=== PATIENT | male | born 1940 | race Caucasian/White ===

== ENCOUNTER 2016-08-19 12:57 | Emergency (ER) | payer OTHER ==
[~2016-08-19] VITALS: Ht 167.6 cm; Wt 68.0 kg
[~2016-08-19 12:57] MED LIST: ADVAIR HFA115 MCG/21 INH; AMOXICILLIN 50500 M1 PO; ATORVASTATIN CA40 MG PO; CARDIZEM CD240 MG PO; COLACE100 MG PO; COUMADIN 5 MG TA5 M1 PO; COZAAR 50 MG TA50 M2 PO; COZAAR100 MG PO; LASIX 40 MG TAB40 M2 PO; NORVASC5 MG PO; PACERONE 200 M200 MG PO; PREDNISONE50 MG PO; PROVENTIL HFA6.7 G1 INH; SENNA PO; TOPROL XL50 MG PO; TYLENOL325 MG PO; VENTOLIN HFA 1818 GM INH; XARELTO15 MG PO
[2016-08-19] MEDS ORDERED: LOSARTAN POTAS100 MG PO (13:02)
[2016-08-19] MEDS ORDERED: METOPROLOL SUCC50 MG PO (13:02)
== END 2016-08-19 14:46 | disposition home or self-care (01) ==
LOC: ER 12:57
DX: S01.81XA Laceration without foreign body of other part of head, initial encounter (principal); I10 Essential (primary) hypertension; I48.91 Unspecified atrial fibrillation; J44.9 Chronic obstructive pulmonary disease, unspecified; F10.99 Alcohol use, unspecified with unspecified alcohol-induced disorder; Z90.49 Acquired absence of other specified parts of digestive tract; W18.09XA Striking against other object with subsequent fall, initial encounter; Y93.01 Activity, walking, marching and hiking; Y92.9 Unspecified place or not applicable; Y99.9 Unspecified external cause status

== ENCOUNTER 2017-04-21 14:25 | Inpatient (IN) | payer OTHER ==
[~2017-04-21] VITALS: Ht 167.6 cm; Wt 63.9 kg
--- NOTE | ~2017-04-21 | HC ---
[facility] [place] [address] CONSULTATION Name: HARIS EVANS Room #: 203-P [facility] IN .R.#: [id number] Admission: 04/21/17 Attend Phys: Edson Wallace Discharge: Date of : 40 Report #: [id number] THIS REPORT FOR: //name// CC: Devika Wallace DATE OF SERVICE: 04/27/2017 HISTORY OF PRESENT ILLNESS: This is a 76-year-old white male who was admitted with increased shortness of breath. He was noted to have acute respiratory failure, right lower lobe pneumonia. He has advanced pulmonary fibrosis. His course has been complicated by a metabolic encephalopathy, which appears to be superimposed upon a premorbid dementia. He has been confused with the need for wrist restrains. He has also been treated for paroxysmal atrial fibrillation and chronic kidney disease. We are seeing him in Rehabilitation Medicine consultation. 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 MEDICATIONS: Please see the full medication listing. HABITS: Current every day smoker, half pack per day for 50 years, history of some alcohol use as well. ALLERGIES: No known drug allergies. FAMILY HISTORY: Noncontributory. Medical records indicate family history of hypertension. SOCIAL HISTORY: Noted to be living with his , apartment. He used a cane or a walker. No steps. has noted he needed a wheelchair to get to the hospital room. She was able to drive short distances. REVIEW OF SYSTEMS: Unobtainable. PHYSICAL EXAMINATION: GENERAL: A 76-year-old white male who was very sleepy on examination. VITAL SIGNS: Temperature 97.8, pulse 58, respirations 13, blood pressure 164/89. Nasal prong O2 is in place, 2 liters. NEUROLOGIC: He would arouse, then go right back to sleep. Facies appeared symmetric. Bilateral wrists are restrained. Appears to have good strength of both upper extremities with normal appearing tone. Lower extremities, no focal calf swelling. Appeared to have good strength. Again, I was unable to manual test volitionally, but his tone appeared to be intact. No calf swelling. No distal lower extremity edema. Functionally, he has been min assist with sit to [facility] [address] [place] [address] CONSULTATION Name: HARIS EVANS Room #: 203-P [facility] IN M.R.#: [id number] Admission: 04/21/17 Attend Phys: Edson Wallace Discharge: Date of : 40 Report #: [id number] supine, max assist with sit to stand and was noted by therapy to be listing to the right with inability to ambulate secondary to decreased balance. ASSESSMENT: A 76-year-old white male with the following problem list: 1. Metabolic encephalopathy. Neurology is involved as well. 2. Respiratory failure. 3. Advanced pulmonary fibrosis. 4. Right lower lobe pneumonia. 5. Chronic obstructive pulmonary disease exacerbation. 6. Right heart failure with cor pulmonale. 7. History of atrial fibrillation. PLAN: He currently is quite sleepy and has bilateral wrist restrains in place. We will be glad to assist regarding rehab therapy options as he further medically stabilizes. Note that case management is involved. We will be glad to follow along with you. <ELECTRONICALLY SIGNED> By: Chris Espinosa MD 04/28/17 1006 1034 0129 Chris Espinosa MD /[facility]
--- NOTE | ~2017-04-21 | HC ---
[facility] [place] [address] CONSULTATION Name: HARIS EVANS Room #: 203-P ADM IN M.R.#: [id number] Admission: 04/21/17 Attend Phys: Edson Wallace Discharge: Date of : 40 Report #: [id number] THIS REPORT FOR: //name// CC: Devika Wallace DATE OF SERVICE: 04/22/2017 DATE OF SERVICE: 04/22/2017 REQUESTING PHYSICIAN: Dr. Edson Wallace. PRIMARY HOME RESTORATION SERVICE SUPERVISOR: Dr. David Stacy. PRIMARY CARE DOCTOR: Dr. Devika Brothers. CHIEF COMPLAINT: Shortness of breath. HISTORY OF PRESENT ILLNESS: The patient is a 76-year-old male with a history of COPD and atrial fibrillation, atrial arrhythmias, but no documented history of congestive heart failure, presents with increasing shortness of breath over the last several days. He denies orthopnea, PND. He denies cough, fevers, chills. He was given Lasix in the Emergency Room and his shortness of breath, which was predominantly with activity, has improved, but he still has an oxygen requirement of 2 liters nasal cannula. He ruled out for an acute myocardial infarction. His ECG demonstrates a sinus rhythm. He has a history of atrial fibrillation, anticoagulated with a novel agent and is on amiodarone. He denies palpitations or dizziness. He denies syncope or fall. He denies any abdominal pain, GI, bleeding on his current anticoagulation. He did have some lower extremity swelling. PAST SURGICAL HISTORY: Prior numerous back surgeries with placement of hardware, has prior hemicolectomy. FAMILY HISTORY: There is a history of hypertension. SOCIAL HISTORY: He has a half pack per day smoking history, he rarely drinks. PAST MEDICAL HISTORY: Includes atrial fibrillation, paroxysmal, ____ sinus [facility] [address] [place] [address] CONSULTATION Name: TEEJUDYHARIS Woodward Room #: 203-P [facility] IN [facility].#: [id number] Admission: 04/21/17 Attend Phys: Edson Wallace Discharge: Date of : 40 Report #: [id number] rhythm on amiodarone, chronic kidney disease, COPD, hypertension, hyperlipidemia, pneumonia, sepsis, tobacco abuse. ALLERGIES: He has no known drug allergies. HOME MEDICATIONS: Include losartan 100 mg daily, Toprol-XL 50 mg daily, amlodipine 5 mg daily, Xarelto 50 mg daily, Tylenol p.r.n. REVIEW OF SYSTEMS: GASTROINTESTINAL: No abdominal pain, nausea, vomiting. No hematemesis or melena. GENITOURINARY: No dysuria or hematuria. CARDIOVASCULAR: No chest pain. Positive dyspnea on exertion. Positive orthopnea, positive PND, positive edema. PULMONARY: Positive shortness of breath. Positive cough, no fevers or chills. NEUROLOGIC: Denies slurred speech, numbness or weakness. MUSCULOSKELETAL: Denies any recent fall. SKIN: Positive edema. No rashes: VITAL SIGNS: Blood pressure 123/65, pulse 52 in a sinus rhythm, sinus bradycardia, temperature is 36.1, respiratory rate 18, on 3 liters, his sats 92%. GENERAL: This is an elderly male who is alert, oriented, no apparent distress. NECK: Supple. No jugular venous distention. CARDIOVASCULAR: Regular, heart tones are distant, there is no rub or gallop. LUNGS: Diminished breath sounds, some coarseness and wheezing. ABDOMEN: Soft, nontender. EXTREMITIES: No peripheral edema. LABORATORY DATA: ECG demonstrates sinus bradycardia, normal ST segments. Hemoglobin is 12.5, white blood cell count 7.3. Sodium is 135, potassium 3.8, chloride is 97, CO2 is 37, BUN is 22, creatinine is 1.3. BNP is 1519, troponin I is 0.04. Chest x-ray today demonstrates aeration of the lung has improved with resolution of left lower lobe atelectasis and pneumonia. There is a questionable pneumonia in the right lower lung, spinal hardware is noted. IMPRESSION: 1. Acute respiratory insufficiency. I suspect this is a combination of possible pneumonia, bronchitis and possible mild congestive heart failure. He was given Lasix in the Emergency Department with overall net diuresis of over a liter with some improvement, but I would continue with aggressive pulmonary correlate and antibiotics as directed by pulmonary colleagues. 2. Paroxysmal atrial fibrillation, I would continue with his amiodarone, but if there is any concern that this is causing any permanent interstitial abnormality in his lungs then this can be discontinued. 3. On oral anticoagulation, adequate. At this point in time, he remains a high stroke risk. I would continue with anticoagulation. Although he has fallen in [address] [place] [address] CONSULTATION Name: TEEJUDYCrissyHARIS Ese Room #: 203-P [facility] IN ..#: [id number] Admission: 04/21/17 Attend Phys: Edson Wallace Discharge: Date of : 40 Report #: [id number] the past, he reports no recent episodes. 4. Hypertension. We will continue with his current medical therapy. 5. Congestive heart failure, acute diastolic. I will check an echocardiogram to reassess LV function. <ELECTRONICALLY SIGNED> By: Nahid Mendoza MD, FACC 04/26/1727 0833 Nahid Mendoza MD, FACC /nt
--- NOTE | ~2017-04-21 | EKG ---
[address] [place] [address] ELECTROCARDIOGRAM REPORT Name: HARIS EVANS Room #: 203-P ADM IN M.R.#: [id number] Admission: 04/21/17 Attend Phys: Edson Wallace Discharge: Date of : 40 Report #: [id number] THIS REPORT FOR: //name// [facility] Test Date: 2017-04-24 Test Time: 07:49:57 Pat Name: HARIS EVANS Department: Room: 203 P Gender: M Applications Sales Representative: kkrobert : 1940 Requested By: Chris Rodriguez Order Number: [id number] MD: Champ Bueno Measurements Intervals [place] Rate: 59 P: 50 IN: 179 QRS: 24 QRSD: 104 T: 60 QT: 438 QTc: 434 Interpretive Statements Sinus rhythm Probable left atrial enlargement Left ventricular hypertrophy Compared to ECG 04/21/2017 15:46:34 Left ventricular hypertrophy now present Sinus bradycardia no longer present Electronically Signed On 04-26-2017 8:18:25 CDT by Champ Bueno [email or web address] <ELECTRONICALLY SIGNED> By: Champ Bueno MD, [facility] 04/26/1718 0749 Champ Bueno MD, [facility] /EPI
--- NOTE | ~2017-04-21 | EKG ---
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
--- NOTE | ~2017-04-21 | 2DMMODE ---
[facility] [address] [place] [address] 2 D/M-MODE ECHOCARDIOGRAM Name: HARIS EVANS Room #: 203-P ADM IN .R.#: [id number] Admission: 04/21/17 Attend Phys: Edson Shukal Discharge: Date of : 40 Date of Service: 04/22/17 1134 Report #: [id number] THIS REPORT FOR: //name// APPROVED REPORT Study performed: 04/22/2017 10:33:51 EXAM: Comprehensive 2D, Doppler, and color-flow Echocardiogram Patient Location: Bedside Room #: 203 Status: routine BSA: 1.79 HR: 56 bpm BP: 123/65 mmHg Other Information Study Quality: Adequate Indications Congestive Heart Failure COPD Hypertension/HDD 2D Dimensions RVDd: 25.28 mm LVEF(%): 62.49 (>50%) IVSd: 10.43 (7-11mm) LVOT Diam: 23.30 (18-24mm) LVDd: 48.77 mm PWd: 11.23 (7-11mm) Ascending Ao: 34.01 (22-36mm) LVDs: 32.28 (25-40mm) Aortic Root: 40.62 mm IVC: 23.00 mm Baca's LVEF: 62.49 % Volumes Left Atrial Volume (Systole) Single Plane 4CH: 44.90 mL Single Plane 2CH: 43.23 mL LA ESV Index: 29.00 mL/m2 Aortic Valve AoV Peak Juan.: 1.32 m/s AO Peak Gr.: 6.92 mmHg LVOT Max P.32 mmHg LVOT Max V: 1.15 m/s ITZEL Vmax: 3.73 cm2 AI Vmax: 3.67 m/s AI Toole: 1.62 m/s2 AI PHT: 656.10 ms [facility] [employer] [place] [address] 2 D/M-MODE ECHOCARDIOGRAM Name: HARIS EVANS Room #: 203-P [facility] IN ..#: [id number] Admission: 04/21/17 Attend Phys: Edson Shukla Discharge: Date of : 40 Date of Service: 04/22/17 1134 Report #: [id number] Mitral Valve E/A Ratio: 0.6 MV Decel. Time: 314.27 ms MV E Max Juan.: 0.53 m/s MV A Juan.: 0.84 m/s MV PHT: 91.14 ms IVRT: 156.86 ms Pulmonary Valve PV Peak Juan.: 0.97 m/s PV Peak Gr.: 3.80 mmHg Pulmonary Vein P Vein S: 0.55 m/s P Vein A: 0.33 m/s P Vein D: 0.44 m/s P Vein A Dur.: 115.3 msec P Vein S/D Ratio: 1.25 Tricuspid Valve TR Peak Juan.: 3.23 m/s TR Peak Gr.: 41.81 mmHg PA Pressure: 52.00 mmHg Left Ventricle The left ventricle is normal size. Regional wall motion is normal. There is normal left ventricular wall thickness. The left ventricular systolic function is normal. The left ventricular ejection fraction is within the normal range. LVEF is 60-65%. Grade I - abnormal relaxation pattern. Right Ventricle The right ventricle is normal size. The right ventricular systolic function is normal. Atria The left atrium size is normal. Right atrium is at the upper limits of normal. Aortic Valve The aortic valve is normal in structure. Trace to mild aortic regurgitation. There is no aortic valvular stenosis. Mitral Valve The mitral valve is normal in structure. Trace to mild mitral regurgitation. No evidence of mitral valve stenosis. Tricuspid Valve [facility] [address] [place] [address] 2 D/M-MODE ECHOCARDIOGRAM Name: HARIS EVANS Room #: 203-P [facility] IN [facility]#: [id number] Admission: 04/21/17 Attend Phys: Edson Shukla Discharge: Date of : 40 Date of Service: 04/22/17 1134 Report #: [id number] The tricuspid valve is normal in structure. There is trace to mild tricuspid regurgitation. The right atrial pressure is estimated at mmHg. There is moderate pulmonary hypertension. Pulmonic Valve The pulmonary valve is normal in structure. Trace pulmonic regurgitation. Great Vessels The aortic root is normal in size. IVC is normal in size and collapses >50% with inspiration. Pericardium There is no pericardial effusion. <Conclusion> LVEF is 60-65%. Regional wall motion is normal. Grade I - abnormal relaxation pattern. Right atrium is at the upper limits of normal. The right ventricle is normal size. There is no aortic valvular stenosis. Trace to mild aortic regurgitation. There is no pericardial effusion. <ELECTRONICALLY SIGNED> By: Nahid Mendoza MD, FACC 04/22/17 1134 1134 1134 Nahid Mendoza MD, FACC /INF
--- NOTE | ~2017-04-21 | EKG ---
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
--- NOTE | ~2017-04-21 | EKG ---
[address] [place] [address] ELECTROCARDIOGRAM REPORT Name: HARIS EVANS Room #: 203-P ADM IN M.R.#: [id number] Admission: 04/21/17 Attend Phys: Edson Wallace Discharge: Date of : 40 Report #: [id number] THIS REPORT FOR: //name// [facility] Test Date: 2017-04-25 Test Time: 08:13:56 Pat Name: HARIS EVANS Department: Room: 203 P Gender: M Manager Sign: blanca : 1940 Requested By: Chris Rodriguez Order Number: [id number] MD: Champ Bueno Measurements Intervals [place] Rate: 66 P: [place]: QRS: 9 QRSD: 128 T: 54 QT: 434 QTc: 455 Interpretive Statements Sinus rhythm Atrial premature complexes Nonspecific ST segment abnormality Baseline wander in lead(s) V1 Compared to ECG 04/21/2017 15:46:34 Sinus bradycardia no longer present Electronically Signed On 04-26-2017 8:34:21 CDT by Champ Bueno [email or web address] <ELECTRONICALLY SIGNED> By: Champ Bueno MD, [facility] 04/26/17 0834 2 2 Champ Bueno MD, [facility] /EPI
--- NOTE | ~2017-04-21 | EEG ---
[facility] [place] [address] ELECTROENCEPHALOGRAM Name: HARIS EVANS Room #: 203-P ADM IN M.R.#: [id number] Admission: 04/21/17 Attend Phys: Edson Mcqueen Discharge: Date of : 40 Report #: [id number] THIS REPORT FOR: //name// CC: Devika Wallace DATE OF SERVICE: 04/23/2017 This patient's EEG is being evaluated for altered mental status. EEG was done by placing the electrodes by standard 10-20 system of electrode placement. Both referential and sequential montages were used for recording. Background activity in this patient's EEG is about 8 Hz and 30 microvolts. It is intermixed with theta range slowing on both sides. Photic stimulation is unremarkable. The patient went to sleep that is associated with even more slowing. IMPRESSION: This is a moderately abnormal EEG because it is disorganized and poorly formed. That is a nonspecific abnormality, which can occur with encephalopathy, effects of psychotropic medication, dementia, etc. Clinical correlation is recommended. Thank you very much for this referral. <ELECTRONICALLY SIGNED> By: Anmol Gaines MD 04/26/17 0624 1834 1846 Anmol Gaines MD /nt
[~2017-04-21 14:25] MED LIST changes: +LOSARTAN POTAS100 MG PO; +METOPROLOL SUCC50 MG PO
[2017-04-21 15:00] VITALS: BP 129/76
[2017-04-21 15:50] LABS: HEMATOCRIT 37.1 % (42.0-52.0); HEMOGLOBIN 12.5 gm/dL (14.0-18.0); MCH 32.5 pg (26.0-34.0); MCHC 33.8 g/dL (28.0-37.0); MCV 96.1 fL (80.0-100.0); RBC 3.86 mil/uL (4.50-6.00); RDW 14.4 % (10.5-14.5); WBC 7.3 thou/uL (4.0-11.0)
[2017-04-21 16:06] LABS: ALBUMIN 3.4 g/dL (3.4-5.0); ALKALINE PHOSPHATASE 77 U/L (46-116); ANION GAP 0 mmol/L (7-16); BUN 26 mg/dL (7-18); CALCIUM 9.1 mg/dL (8.5-10.1); CHLORIDE 99 mmol/L (98-107); CO2 37 mmol/L (21-32); CREATININE 1.5 mg/dL (0.7-1.3); GLUCOSE 77 mg/dL (74-106); POTASSIUM 4.6 mmol/L (3.5-5.1); SGOT 18 U/L (15-37); SGPT 19 U/L (30-65); SODIUM 136 mmol/L (136-145); TOTAL BILIRUBIN 0.3 mg/dL (<0.1-1.0); TOTAL PROTEIN 6.6 g/dL (6.4-8.2); TROPONIN-I < 0.04 ng/mL (<0.04-0.07)
[2017-04-21 17:21] LABS: ABG SAMPLE TYPE ARTERIAL; BE(vivo) 6.4 mmol/L (-2 to +3); HCO3 35.9 mmol/L (22.0-26.0); LACTATE 0.79 mmol/L (0.5-2.0); O2(CT) 16.1 mL/dL (15.0-23.0); O2Hb 83.6 % (92.0-98.0); PCO2 77.9 mmHg (35.0-45.0); PO2 57.2 mmHg (80.0-100.0); pH 7.282 (7.360-7.450); sO2 84.9 % (92.0-98.0); tCO2 38.3 mmol/L (24.0-30.0)
[2017-04-21 17:22] LABS: STICK SITE R.RADIAL
[2017-04-21 19:45] VITALS: BP 127/62
[2017-04-21 19:58] LABS: ABG SAMPLE TYPE ARTERIAL; BE(vivo) 7.2 mmol/L (-2 to +3); HCO3 37.3 mmol/L (22.0-26.0); LACTATE 0.79 mmol/L (0.5-2.0); O2(CT) 19.1 mL/dL (15.0-23.0); O2Hb 95.7 % (92.0-98.0); PCO2 83.6 mmHg (35.0-45.0); PO2 397.8 mmHg (80.0-100.0); pH 7.267 (7.360-7.450); sO2 99.7 % (92.0-98.0); tCO2 39.8 mmol/L (24.0-30.0)
[2017-04-21 19:59] LABS: STICK SITE LINE
[2017-04-21 20:00] LABS: Pressure Support 12 cm H20
[2017-04-22] VITALS (7 sets, daily range): BP systolic 123–150; BP diastolic 65–79
[2017-04-22 03:22] LABS: ABG SAMPLE TYPE ARTERIAL; HCO3 38.2 mmol/L (22.0-26.0); LACTATE 1.19 mmol/L (0.5-2.0); O2(CT) 16.9 mL/dL (15.0-23.0); O2Hb 90.4 % (92.0-98.0); PCO2 62.4 mmHg (35.0-45.0); PO2 58.7 mmHg (80.0-100.0); pH 7.405 (7.360-7.450); sO2 89.8 % (92.0-98.0); tCO2 40.1 mmol/L (24.0-30.0)
[2017-04-22 03:23] LABS: Pressure Support 6 cm H20; STICK SITE L.BRACHIAL; VDS BIPAP 14/8 cc
[2017-04-22 04:05] LABS: ALBUMIN 3.4 g/dL (3.4-5.0); CALCIUM 9.1 mg/dL (8.5-10.1); CREATININE 1.3 mg/dL (0.7-1.3); PHOSPHORUS 3.1 mg/dL (2.5-4.9); POTASSIUM 3.8 mmol/L (3.5-5.1)
[2017-04-22 07:50] LABS: ABG SAMPLE TYPE ARTERIAL; BE(vivo) 10.7 mmol/L (-2 to +3); HCO3 37.2 mmol/L (22.0-26.0); LACTATE 1.29 mmol/L (0.5-2.0); O2(CT) 16.1 mL/dL (15.0-23.0); O2Hb 85.7 % (92.0-98.0); PCO2 57.9 mmHg (35.0-45.0); pH 7.426 (7.360-7.450); sO2 85.2 % (92.0-98.0)
[2017-04-22 07:51] LABS: PO2 49.8 mmHg (80.0-100.0); STICK SITE L.RADIAL
[2017-04-22] MEDS ORDERED: PACERONE 200 M200 M1 PO (13:50)
[2017-04-23 03:34] VITALS: BP 136/68
[2017-04-23 07:58] VITALS: BP 97/58
[2017-04-23 09:36] LABS: CALCIUM 9.6 mg/dL (8.5-10.1)
[2017-04-23 10:41] LABS: ABG SAMPLE TYPE ARTERIAL; BE(vivo) 10.9 mmol/L (-2 to +3); HCO3 36.9 mmol/L (22.0-26.0); LACTATE 1.55 mmol/L (0.5-2.0); O2(CT) 15.8 mL/dL (15.0-23.0); O2Hb 85.4 % (92.0-98.0); PCO2 54.5 mmHg (35.0-45.0); PO2 49.6 mmHg (80.0-100.0); STICK SITE L.BRACHIAL; pH 7.448 (7.360-7.450); sO2 85.9 % (92.0-98.0); tCO2 38.5 mmol/L (24.0-30.0)
[2017-04-23 16:53] VITALS: BP 139/117
[2017-04-23 19:25] VITALS: BP 97/58
[2017-04-24 03:23] VITALS: BP 124/54
[2017-04-24 07:50] VITALS: BP 119/69
[2017-04-24 12:10] VITALS: BP 105/64
[2017-04-24 17:10] VITALS: BP 113/68
[2017-04-24 19:19] VITALS: BP 111/62
[2017-04-25 03:28] VITALS: BP 128/69
[2017-04-25 04:46] LABS: HEMATOCRIT 36.6 % (42.0-52.0); HEMOGLOBIN 12.2 gm/dL (14.0-18.0); MCH 31.4 pg (26.0-34.0); MCHC 33.2 g/dL (28.0-37.0); MCV 94.5 fL (80.0-100.0); RBC 3.88 mil/uL (4.50-6.00); RDW 13.9 % (10.5-14.5); WBC 13.2 thou/uL (4.0-11.0)
[2017-04-25 05:09] LABS: ALBUMIN 2.9 g/dL (3.4-5.0); CALCIUM 9.8 mg/dL (8.5-10.1); CREATININE 1.5 mg/dL (0.7-1.3); MAGNESIUM 2.7 mg/dL (1.8-2.4); POTASSIUM 3.2 mmol/L (3.5-5.1); TOTAL BILIRUBIN 0.6 mg/dL (<0.1-1.0); TOTAL PROTEIN 5.7 g/dL (6.4-8.2)
[2017-04-25 08:00] VITALS: BP 97/67
[2017-04-25 15:40] VITALS: BP 133/63
[2017-04-25 19:25] VITALS: BP 126/69
[2017-04-26 03:41] VITALS: BP 125/67
[2017-04-26 07:16] VITALS: BP 147/77
[2017-04-26 07:35] LABS: ABG SAMPLE TYPE ARTERIAL; BE(vivo) 6.4 mmol/L (-2 to +3); HCO3 32.8 mmol/L (22.0-26.0); LACTATE 1.17 mmol/L (0.5-2.0); O2(CT) 17.3 mL/dL (15.0-23.0); O2Hb 96.2 % (92.0-98.0); PO2 104.2 mmHg (80.0-100.0); pH 7.393 (7.360-7.450); sO2 97.6 % (92.0-98.0); tCO2 34.5 mmol/L (24.0-30.0)
[2017-04-26 07:36] LABS: FIO2 50 %; STICK SITE L.RADIAL
[2017-04-26 07:37] LABS: Pressure Support 15 cm H20
[2017-04-26 11:45] VITALS: BP 133/74
[2017-04-26 16:00] VITALS: BP 142/74
[2017-04-26 19:15] VITALS: BP 140/72
[2017-04-27 03:20] VITALS: BP 156/84
[2017-04-27 04:34] LABS: CALCIUM 9.6 mg/dL (8.5-10.1); MAGNESIUM 2.3 mg/dL (1.8-2.4); PHOSPHORUS 2.6 mg/dL (2.5-4.9); POTASSIUM 3.6 mmol/L (3.5-5.1)
[2017-04-27 07:10] LABS: ABG SAMPLE TYPE ARTERIAL; BE(vivo) 5.3 mmol/L (-2 to +3); HCO3 30.9 mmol/L (22.0-26.0); LACTATE 1.68 mmol/L (0.5-2.0); O2(CT) 17.7 mL/dL (15.0-23.0); O2Hb 96.2 % (92.0-98.0); PCO2 49.5 mmHg (35.0-45.0); PO2 95.3 mmHg (80.0-100.0); Pressure Support 15 cm H20; STICK SITE L.RADIAL; pH 7.413 (7.360-7.450); sO2 97.3 % (92.0-98.0); tCO2 32.4 mmol/L (24.0-30.0)
[2017-04-27 07:25] VITALS: BP 164/89
[2017-04-27 11:53] VITALS: BP 136/65
[2017-04-27 15:31] LABS: FOLIC ACID 14.9 ng/mL (8.6-58.9)
[2017-04-27 16:25] VITALS: BP 149/84
[2017-04-27 21:19] VITALS: BP 155/81
[2017-04-27 22:54] VITALS: BP 141/71
[2017-04-28 00:04] VITALS: BP 136/81
[2017-04-28 04:15] VITALS: BP 144/74
[2017-04-28 04:35] LABS: ALBUMIN 2.6 g/dL (3.4-5.0); CALCIUM 9.4 mg/dL (8.5-10.1); CREATININE 0.9 mg/dL (0.7-1.3); POTASSIUM 4.1 mmol/L (3.5-5.1)
[2017-04-28 07:30] VITALS: BP 150/78
[2017-04-28 11:30] VITALS: BP 140/91
[2017-04-28 15:45] VITALS: BP 147/83
[2017-04-28 19:00] VITALS: BP 119/77
[2017-04-29 02:59] VITALS: BP 142/86
[2017-04-29 03:48] LABS: ALBUMIN 2.5 g/dL (3.4-5.0); CREATININE 0.9 mg/dL (0.7-1.3); PHOSPHORUS 2.7 mg/dL (2.5-4.9); POTASSIUM 3.9 mmol/L (3.5-5.1)
[2017-04-29 07:15] VITALS: BP 156/74
[2017-04-29 11:30] VITALS: BP 105/67
[2017-04-29 15:15] VITALS: BP 150/89
[2017-04-29 19:08] VITALS: BP 172/89
[2017-04-29 23:36] VITALS: BP 105/69
[2017-04-30 03:25] VITALS: BP 132/78
[2017-04-30 04:03] LABS: ALBUMIN 2.3 g/dL (3.4-5.0); CALCIUM 8.9 mg/dL (8.5-10.1); CREATININE 0.8 mg/dL (0.7-1.3); PHOSPHORUS 2.9 mg/dL (2.5-4.9); POTASSIUM 3.6 mmol/L (3.5-5.1)
[2017-04-30 07:25] VITALS: BP 165/85
[2017-04-30 11:05] VITALS: BP 106/61
[2017-04-30 12:06] LABS: ABG SAMPLE TYPE ARTERIAL; BE(vivo) 2.5 mmol/L (-2 to +3); HCO3 26.4 mmol/L (22.0-26.0); LACTATE 1.09 mmol/L (0.5-2.0); O2(CT) 19.2 mL/dL (15.0-23.0); O2Hb 92.4 % (92.0-98.0); PCO2 38.3 mmHg (35.0-45.0); PO2 65.9 mmHg (80.0-100.0); STICK SITE L.BRACHIAL; pH 7.456 (7.360-7.450); tCO2 27.6 mmol/L (24.0-30.0)
[2017-04-30 12:07] LABS: ABG COMMENT OFF BIPAP
[2017-04-30 15:55] VITALS: BP 106/64
[2017-04-30 19:13] VITALS: BP 100/55
[2017-05-01 03:43] VITALS: BP 136/76
[2017-05-01 04:22] LABS: HEMATOCRIT 38.9 % (42.0-52.0); HEMOGLOBIN 13.3 gm/dL (14.0-18.0); MCH 31.7 pg (26.0-34.0); MCHC 34.3 g/dL (28.0-37.0); MCV 92.6 fL (80.0-100.0); PLATELET COUNT 137 thou/uL (150-400); RDW 13.9 % (10.5-14.5); WBC 8.4 thou/uL (4.0-11.0)
[2017-05-01 04:24] LABS: MANUAL DIFF YES
[2017-05-01 06:20] LABS: ABSOLUTE NEUTROPHILS 5.9 thou/uL (1.4-8.2); TOTAL CELL COUNT 100
[2017-05-01 06:21] LABS: ANISOCYTOSIS 1+
[2017-05-01 07:25] VITALS: BP 138/80
[2017-05-01 11:30] VITALS: BP 125/72
[2017-05-01 15:05] VITALS: BP 119/70
[2017-05-01 19:24] VITALS: BP 126/82
[2017-05-02 03:16] VITALS: BP 149/86
[2017-05-02 07:05] VITALS: BP 145/81
[2017-05-02 11:25] LABS: ABG SAMPLE TYPE ARTERIAL; BE(vivo) 4.9 mmol/L (-2 to +3); HCO3 29.3 mmol/L (22.0-26.0); LACTATE 2.06 mmol/L (0.5-2.0); O2Hb 90.8 % (92.0-98.0); PCO2 42.5 mmHg (35.0-45.0); PO2 58.8 mmHg (80.0-100.0); STICK SITE R.RADIAL; pH 7.457 (7.360-7.450); sO2 91.7 % (92.0-98.0); tCO2 30.6 mmol/L (24.0-30.0)
[2017-05-02 11:54] VITALS: BP 118/60
[2017-05-02 15:11] VITALS: BP 98/62
[2017-05-02 19:57] VITALS: BP 122/76
[2017-05-03 02:10] VITALS: BP 145/71
[2017-05-03 03:05] LABS: HEMATOCRIT 37.4 % (42.0-52.0); HEMOGLOBIN 12.4 gm/dL (14.0-18.0); MCH 30.8 pg (26.0-34.0); MCHC 33.2 g/dL (28.0-37.0); RBC 4.03 mil/uL (4.50-6.00); RDW 13.9 % (10.5-14.5); WBC 12.8 thou/uL (4.0-11.0)
[2017-05-03 03:23] LABS: ALBUMIN 2.3 g/dL (3.4-5.0); CALCIUM 8.7 mg/dL (8.5-10.1); CREATININE 0.8 mg/dL (0.7-1.3); PHOSPHORUS 2.5 mg/dL (2.5-4.9)
[2017-05-03 08:00] VITALS: BP 145/85
[2017-05-03] MEDS ORDERED: MIRALAX17 GM PO (11:02)
[2017-05-03] MEDS ORDERED: PAIN & FEVER325 MG PO (11:02)
[2017-05-03] MEDS ORDERED: AUGMENTIN 500-1 EACH PO (11:02)
[2017-05-03] MEDS ORDERED: PREDNISONE 20 M20 M1 PO (11:02)
[2017-05-03] MEDS ORDERED: NITROGLYCERIN0.4 MG SUBLING (11:02)
[2017-05-03] MEDS ORDERED: ZYPREXA 5 MG TAB5 M1 PO (11:02)
[2017-05-03] MEDS ORDERED: DUONEB 2.5-0.5 M3 ML INH (11:02)
[2017-05-03] MEDS ORDERED: LOPRESSOR50 PO (11:02)
[2017-05-03 12:00] VITALS: BP 140/86
[2017-05-03 15:04] VITALS: BP 140/86
[2017-05-03 16:00] VITALS: BP 99/54
== END 2017-05-03 16:54 | DRG 177 ==
LOC: 2N 14:25
PROVIDERS: Hospitalist; Internal Medicine Cardiovascular Disease; Internal Medicine Pulmonary Disease; Nurse Practitioner Acute Care; Psychiatry & Neurology Neurology
PROC: 5A09557 Assistance with Respiratory Ventilation, Greater than 96 Consecutive Hours, Continuous Positive Airway Pressure (ICD-10-PCS; principal; 2017-04-22)
DX: J69.0 Pneumonitis due to inhalation of food and vomit (principal); G93.41 Metabolic encephalopathy; J96.01 Acute respiratory failure with hypoxia; J96.02 Acute respiratory failure with hypercapnia; I50.33 Acute on chronic diastolic (congestive) heart failure; J44.1 Chronic obstructive pulmonary disease with (acute) exacerbation; E87.0 Hyperosmolality and hypernatremia; I13.0 Hypertensive heart and chronic kidney disease with heart failure and stage 1 through stage 4 chronic kidney disease, or unspecified chronic kidney disease; N18.9 Chronic kidney disease, unspecified; I48.0 Paroxysmal atrial fibrillation; E78.5 Hyperlipidemia, unspecified; I27.81 Cor pulmonale (chronic); F17.210 Nicotine dependence, cigarettes, uncomplicated; R41.0 Disorientation, unspecified; F03.90 Unspecified dementia, unspecified severity, without behavioral disturbance, psychotic disturbance, mood disturbance, and anxiety; E86.1 Hypovolemia; E11.22 Type 2 diabetes mellitus with diabetic chronic kidney disease; Z82.49 Family history of ischemic heart disease and other diseases of the circulatory system; Z79.01 Long term (current) use of anticoagulants; Z79.899 Other long term (current) drug therapy
CPT/HCPCS: 10081